=== PATIENT | male | born 1980 | race Caucasian/White ===

== ENCOUNTER 2019-06-10 13:09 | Emergency (ER) | payer OTHER ==
[~2019-06-10] VITALS: Ht 190.5 cm; Wt 204.1 kg
[2019-06-10 14:28] LABS: HEMATOCRIT 43.8 % (42.0-52.0); HEMOGLOBIN 14.6 gm/dL (14.0-18.0); MCH 27.6 pg (26.0-34.0); MCHC 33.3 g/dL (28.0-37.0); MPV 9.7 fl. (7.2-11.1); NUCLEATED RBCS 0 /100WBC; PLATELET COUNT* 232 thou/uL (150-400); RBC 5.28 mil/uL (4.50-6.00); RDW-CV 14.5 % (10.5-14.5); WBC 14.4 thou/uL (4.0-11.0)
[2019-06-10 14:42] LABS: ANION GAP 7 mmol/L (7-16); BUN 12 mg/dL (7-18); CALCIUM 9.1 mg/dL (8.5-10.1); CHLORIDE 103 mmol/L (98-107); CO2 29 mmol/L (21-32); CREATININE 0.8 mg/dL (0.6-1.3); GLUCOSE 97 mg/dL (70-99); POTASSIUM 3.9 mmol/L (3.5-5.1); SODIUM 139 mmol/L (136-145)
[2019-06-10 14:46] LABS: ALBUMIN 3.1 g/dL (3.4-5.0); ALKALINE PHOSPHATASE 85 U/L (46-116); NT-PRO BRAIN NAT PEPTIDE 231 pg/mL (<300); SGOT 15 U/L (15-37); SGPT 28 U/L (30-65); TOTAL BILIRUBIN 0.3 mg/dL (<0.1-1.0); TROPONIN-I LEVEL <0.06 ng/mL (<0.06)
[2019-06-10 14:50] LABS: ABSOLUTE LYMPHOCYTES 2.7 thou/uL (0.8-5.3); ABSOLUTE MONOCYTES 0.6 thou/uL (0.0-1.2); ABSOLUTE NEUTROPHILS 11.1 thou/uL (1.6-8.1); PLATELET ESTIMATE ADEQUATE
--- NOTE | 2019-06-10 17:10 | EKG ---
[place] [address] ELECTROCARDIOGRAM REPORT Name: VIKAANKIT Room: [facility]#: [id number] Admission: 06/10/19 Attend Phys: Discharge: Date of : 82 Report #: [id number] THIS REPORT FOR: //name// [facility] ED Test Date: 2019-06-10 Test Time: 14:20:40 Pat Name: ANKIT SANDY Department: Room: Gender: Registered Nurse Maternal Child: : 1980 Requested By: Parvin Albert Order Number: [id number] MD: Ankit Anna Measurements Intervals [place] Rate: 101 P: 29 ME: 205 QRS: -12 QRSD: 90 T: 57 QT: 317 QTc: 411 Interpretive Statements Sinus tachycardia Borderline prolonged ME interval Consider left atrial enlargement Baseline wander in lead(s) I,II,aVR No previous ECG available for comparison Electronically Signed On 06-10-2019 17:10:06 CDT by Ankit Anna [email or web address] <ELECTRONICALLY SIGNED> By: Ankit Anna MD, [facility] 06/10/19 1710 1420 1420 Ankit Anna MD, FACC /EPI
[2019-06-10] MEDS ORDERED: DOXYCYCLINE 10100 MG PO (18:39)
[2019-06-10] MEDS ORDERED: VENTOLIN HFA 1818 GM INH (18:39)
[2019-06-10 19:16] VITALS: BP 136/98
== END 2019-06-10 19:18 | disposition home or self-care (01) ==
LOC: M.ERS 13:09
PROVIDERS: Nurse Practitioner Family
DX: R06.00 Dyspnea, unspecified (principal); R60.0 Localized edema; Z88.1 Allergy status to other antibiotic agents

== ENCOUNTER 2021-04-07 10:53 | Inpatient (IN) | payer OTHER ==
[~2021-04-07] VITALS: Ht 190.5 cm; Wt 213.3 kg
[~2021-04-07 10:53] MED LIST: DOXYCYCLINE 10100 MG PO; VENTOLIN HFA 1818 GM INH
[2021-04-07 11:05] VITALS: BP 142/85
[2021-04-07 11:42] LABS: HEMATOCRIT 36.1 % (42.0-52.0); MCH 27.8 pg (26.0-34.0); MCHC 33.2 g/dL (28.0-37.0); MCV 83.8 fL (80.0-100.0); MPV 7.6 fl. (7.2-11.1); NUCLEATED RBCS 0 /100WBC; PLATELET COUNT* 333 thou/uL (150-400); RBC 4.31 mil/uL (4.50-6.00); RDW-CV 14.6 % (10.5-14.5); WBC 25.9 thou/uL (4.0-11.0)
[2021-04-07 11:46] LABS: CALCIUM 8.2 mg/dL (8.5-10.1); CREATININE 0.9 mg/dL (0.6-1.3)
[2021-04-07 11:48] LABS: POTASSIUM 2.5 mmol/L (3.5-5.1)
[2021-04-07 11:56] LABS: ALBUMIN 1.7 g/dL (3.4-5.0); TOTAL BILIRUBIN 0.7 mg/dL (<0.1-1.0); TOTAL PROTEIN 7.3 g/dL (6.4-8.2)
[2021-04-07 12:16] LABS: ABSOLUTE EOSINOPHILS 0.8 thou/uL (0.0-0.7); ABSOLUTE LYMPHOCYTES 2.1 thou/uL (0.8-5.3); ABSOLUTE MONOCYTES 0.3 thou/uL (0.0-1.2); ABSOLUTE NEUTROPHILS 22.8 thou/uL (1.6-8.1); ANISOCYTOSIS 1+; PLATELET ESTIMATE ADEQUATE; POIKILOCYTOSIS 1+
[2021-04-07 17:20] VITALS: BP 132/81
--- NOTE | 2021-04-07 17:25 | EKG ---
[place] [address] ELECTROCARDIOGRAM REPORT Name: VIKAANKIT Room: [place] [address] ADM [place] [facility]#: [id number] Admission: 04/07/21 Attend Phys: Angelina Whyte, Discharge: Date of : 82 Date of Service: 04/07/21 1133 Report #: [id number] THIS REPORT FOR: //name// [facility] ED Test Date: 2021-04-07 Test Time: 11:33:38 Pat Name: ANKIT SANDY Department: Room: [facility] Gender: M Welder Tech: MANE : 1980 Requested By: Parvin Albert Order Number: [id number] MD: Ankit Anna Measurements Intervals [place] Rate: 102 P: 30 IL: 153 QRS: -21 QRSD: 104 T: 80 QT: 339 QTc: 442 Interpretive Statements Sinus tachycardia Borderline left axis deviation Minimal ST depression, lateral leads Compared to ECG 06/10/2019 14:20:40 ST (T wave) deviation now present Electronically Signed On 04-07-2021 17:25:15 CDT by Ankit Anna [email or web address] <ELECTRONICALLY SIGNED> By: Ankit Anna MD, [facility] 04/07/21 1725 1133 1133 Ankit Anna MD, [facility] /EPI
[2021-04-07 22:11] VITALS: BP 141/75
[2021-04-07 23:49] VITALS: BP 103/79
[2021-04-08 02:06] LABS: GLYCOHEMOGLOBIN (HGB A1C) 5.3 % (4.8-5.6)
[2021-04-08 04:00] VITALS: BP 128/62
[2021-04-08 04:50] LABS: HEMATOCRIT 34.7 % (42.0-52.0); HEMOGLOBIN 11.4 gm/dL (14.0-18.0); MCV 84.9 fL (80.0-100.0); MPV 7.7 fl. (7.2-11.1); RBC 4.09 mil/uL (4.50-6.00); RDW-CV 14.8 % (10.5-14.5); WBC 23.5 thou/uL (4.0-11.0)
[2021-04-08 05:24] LABS: ALBUMIN 1.6 g/dL (3.4-5.0); CALCIUM 7.3 mg/dL (8.5-10.1); CREATININE 0.8 mg/dL (0.6-1.3); TOTAL BILIRUBIN 0.5 mg/dL (<0.1-1.0); TOTAL PROTEIN 7.1 g/dL (6.4-8.2)
[2021-04-08 05:34] LABS: POTASSIUM 2.6 mmol/L (3.5-5.1)
[2021-04-08 07:51] VITALS: BP 139/77
[2021-04-08 12:00] VITALS: BP 138/81
[2021-04-08 16:00] VITALS: BP 122/63
[2021-04-08 23:41] VITALS: BP 115/64; BP 138/54
[2021-04-09 04:11] VITALS: BP 136/53
[2021-04-09 04:49] LABS: ABSOLUTE BASOPHILS 0.1 thou/uL (0.0-0.2); ABSOLUTE EOSINOPHILS 0.3 thou/uL (0.0-0.7); ABSOLUTE LYMPHOCYTES 1.2 thou/uL (0.8-5.3); ABSOLUTE MONOCYTES 1.8 thou/uL (0.0-1.2); ABSOLUTE NEUTROPHILS 15.8 thou/uL (1.6-8.1); BASOPHILS 0.5 %; EOSINOPHILS 1.5 %; HEMATOCRIT 33.9 % (42.0-52.0); HEMOGLOBIN 11.1 gm/dL (14.0-18.0); LYMPHOCYTES 6.2 %; MCH 27.8 pg (26.0-34.0); MCHC 32.6 g/dL (28.0-37.0); MCV 85.2 fL (80.0-100.0); MONOCYTES 9.3 %; MPV 7.7 fl. (7.2-11.1); NUCLEATED RBCS 0 /100WBC; PLATELET COUNT* 293 thou/uL (150-400); POLYS 82.5 %; RBC 3.98 mil/uL (4.50-6.00); WBC 19.1 thou/uL (4.0-11.0)
[2021-04-09 05:04] LABS: ALBUMIN 1.6 g/dL (3.4-5.0); CALCIUM 8.1 mg/dL (8.5-10.1); CREATININE 0.8 mg/dL (0.6-1.3); POTASSIUM 3.3 mmol/L (3.5-5.1); TOTAL BILIRUBIN 0.1 mg/dL (<0.1-1.0); TOTAL PROTEIN 6.9 g/dL (6.4-8.2)
[2021-04-09 07:44] VITALS: BP 110/56
[2021-04-09 12:00] VITALS: BP 124/67
[2021-04-09 17:00] VITALS: BP 129/69
[2021-04-10 00:09] VITALS: BP 141/87
[2021-04-10 03:38] VITALS: BP 146/74
[2021-04-10 04:54] LABS: ABSOLUTE BASOPHILS 0.1 thou/uL (0.0-0.2); ABSOLUTE EOSINOPHILS 0.3 thou/uL (0.0-0.7); ABSOLUTE LYMPHOCYTES 1.1 thou/uL (0.8-5.3); ABSOLUTE MONOCYTES 1.9 thou/uL (0.0-1.2); ABSOLUTE NEUTROPHILS 18.8 thou/uL (1.6-8.1); BASOPHILS 0.4 %; EOSINOPHILS 1.4 %; HEMATOCRIT 36.2 % (42.0-52.0); HEMOGLOBIN 11.9 gm/dL (14.0-18.0); LYMPHOCYTES 4.9 %; MCHC 32.8 g/dL (28.0-37.0); MCV 85.3 fL (80.0-100.0); MONOCYTES 8.6 %; MPV 7.6 fl. (7.2-11.1); NUCLEATED RBCS 0 /100WBC; PLATELET COUNT* 281 thou/uL (150-400); POLYS 84.7 %; RBC 4.24 mil/uL (4.50-6.00); RDW-CV 14.7 % (10.5-14.5); WBC 22.2 thou/uL (4.0-11.0)
[2021-04-10 05:13] LABS: ALBUMIN 1.7 g/dL (3.4-5.0); CREATININE 0.6 mg/dL (0.6-1.3); POTASSIUM 3.9 mmol/L (3.5-5.1); TOTAL BILIRUBIN 0.3 mg/dL (<0.1-1.0); TOTAL PROTEIN 7.3 g/dL (6.4-8.2)
[2021-04-10 08:00] VITALS: BP 131/72
[2021-04-10 18:08] VITALS: BP 140/68
[2021-04-10 20:00] VITALS: BP 115/58
[2021-04-11] VITALS: BP 103/71
[2021-04-11 01:58] LABS: ABSOLUTE BASOPHILS 0.1 thou/uL (0.0-0.2); ABSOLUTE EOSINOPHILS 0.3 thou/uL (0.0-0.7); ABSOLUTE LYMPHOCYTES 1.7 thou/uL (0.8-5.3); ABSOLUTE MONOCYTES 1.9 thou/uL (0.0-1.2); ABSOLUTE NEUTROPHILS 17.7 thou/uL (1.6-8.1); BASOPHILS 0.6 %; EOSINOPHILS 1.5 %; HEMATOCRIT 34.1 % (42.0-52.0); HEMOGLOBIN 11.3 gm/dL (14.0-18.0); MCV 84.7 fL (80.0-100.0); MONOCYTES 8.6 %; MPV 7.6 fl. (7.2-11.1); NUCLEATED RBCS 0 /100WBC; PLATELET COUNT* 251 thou/uL (150-400); POLYS 81.3 %; RBC 4.02 mil/uL (4.50-6.00); RDW-CV 14.8 % (10.5-14.5); WBC 21.8 thou/uL (4.0-11.0)
[2021-04-11 02:12] LABS: ALBUMIN 1.5 g/dL (3.4-5.0); CREATININE 0.7 mg/dL (0.6-1.3); POTASSIUM 3.7 mmol/L (3.5-5.1); TOTAL BILIRUBIN 0.3 mg/dL (<0.1-1.0); TOTAL PROTEIN 6.9 g/dL (6.4-8.2)
[2021-04-11 03:44] VITALS: BP 117/69
[2021-04-11 08:00] VITALS: BP 105/53
[2021-04-11 13:28] VITALS: BP 123/71
[2021-04-11 18:53] VITALS: BP 118/57
[2021-04-11 20:00] VITALS: BP 138/85
[2021-04-12] VITALS (7 sets, daily range): BP systolic 106–141; BP diastolic 50–88
[2021-04-12 04:37] LABS: HEMATOCRIT 33.9 % (42.0-52.0); HEMOGLOBIN 10.9 gm/dL (14.0-18.0); MCH 27.6 pg (26.0-34.0); MCHC 32.2 g/dL (28.0-37.0); MCV 85.5 fL (80.0-100.0); NUCLEATED RBCS 0 /100WBC; PLATELET COUNT* 252 thou/uL (150-400); RBC 3.97 mil/uL (4.50-6.00); RDW-CV 14.7 % (10.5-14.5); WBC 23.1 thou/uL (4.0-11.0)
[2021-04-12 04:52] LABS: CREATININE 0.8 mg/dL (0.6-1.3); POTASSIUM 3.6 mmol/L (3.5-5.1)
[2021-04-12 06:14] LABS: ABSOLUTE BASOPHILS 0.2 thou/uL (0.0-0.2); ABSOLUTE EOSINOPHILS 1.2 thou/uL (0.0-0.7); ABSOLUTE LYMPHOCYTES 2.3 thou/uL (0.8-5.3); ABSOLUTE MONOCYTES 1.8 thou/uL (0.0-1.2); ABSOLUTE NEUTROPHILS 17.6 thou/uL (1.6-8.1); ATYPICAL LYMPHS 1 %; PLATELET ESTIMATE ADEQUATE
[2021-04-13 04:48] VITALS: BP 127/77
[2021-04-13 08:02] VITALS: BP 121/59
[2021-04-13 16:00] VITALS: BP 117/59
[2021-04-13 21:00] VITALS: BP 117/70
[2021-04-14 04:30] VITALS: BP 115/68
[2021-04-14 05:11] LABS: HEMATOCRIT 31.6 % (42.0-52.0); HEMOGLOBIN 10.2 gm/dL (14.0-18.0); MCH 27.4 pg (26.0-34.0); MCHC 32.2 g/dL (28.0-37.0); MCV 84.9 fL (80.0-100.0); RBC 3.72 mil/uL (4.50-6.00); RDW-CV 14.8 % (10.5-14.5); WBC 20.7 thou/uL (4.0-11.0)
[2021-04-14 05:21] LABS: CALCIUM 8.5 mg/dL (8.5-10.1); CREATININE 0.6 mg/dL (0.6-1.3); POTASSIUM 4.4 mmol/L (3.5-5.1)
[2021-04-14 08:00] VITALS: BP 116/59
--- NOTE | 2021-04-14 12:31 | OP ---
[address] [address] OPERATIVE REPORT Name: SÁNCHEZ SANDY Room: [address] IN M.R.#: [id number] Admission: 04/07/21 Attend Phys: Angelina Whyte MD Discharge: Date of : 82 Report #: [id number] THIS REPORT FOR: cc: EJ - No family physician/PCP FAM - No family physician/PCP Job Santoyo DO ~ DATE OF SERVICE: 04/13/2021 SURGEON: Job Santoyo DO PROJECT COACH: Uziel Spian DO PREOPERATIVE DIAGNOSES: 1. Left lower extremity cellulitis, abscess. 2. Obesity. 3. Lymphedema. POSTOPERATIVE DIAGNOSES: 1. Left lower extremity cellulitis, abscess. 2. Obesity. 3. Lymphedema. PROCEDURE PERFORMED: Left lower extremity debridement of skin and subcutaneous fat down to fascia, excisional debridement. INDICATIONS: The patient is a 40-year-old male who presented with a cat scratch and bite and developed cellulitis with abscess formation of the left lower extremity. He had undergone a bedside incision and drainage. The wound over time began to worsen. We discussed the risks, benefits and alternatives to operative debridement. Risks of bleeding, infection and damage to nearby structures including muscles, tendons, nerves, fascia were described. We also discussed chronic wound, poor wound healing, chronic pain, bleeding, and lymphedema. The patient voiced complete understanding and elected to proceed with surgery. DESCRIPTION OF PROCEDURE: The patient was taken to the operating theater where he was placed in the supine position. Preoperative antibiotics had been given. General anesthesia was induced without complication. The left lower extremity was prepped and draped in a standard sterile fashion. Timeout was performed and all were in agreement. The open wound was approximately 7 x 8 cm. Using a finger, the wound was palpated in all directions. The wound tracked superiorly for several centimeters, anteriorly for several centimeters, and inferiorly for several centimeters. The wound also tracked posteriorly behind the [place] [address] OPERATIVE REPORT Name: SÁNCHEZ SANDY Room: [address] [place] ..#: [id number] Admission: 04/07/21 Attend Phys: Angelina Whyte MD Discharge: Date of : 82 Report #: [id number] side of his leg. The wound was then curetted. All necrotic and devitalized subcutaneous fat was removed. Large area of skin surrounding the wound was also removed circumferentially. The tract posterior to the tibia and fibula was cleaned of devitalized subcutaneous fat using curettes. A counterincision was made on the medial aspect of the left lower leg. Finger was inserted and no further tracking was appreciated. A pulse lavage mold sheet cleaner was then used to irrigate the entire wound. Hemostasis was obtained using electrocautery. One 3-0 Vicryl stitch was sewn in a [id number] fashion to ligate a skin bleeder. The final wound dimensions were 16 x 13 cm and 16 cm deep. The wound was packed with Dakin's 0.25% soaked Kerlix gauze. Two gauzes were placed within the wound. One gauze exited the counter incision. The wound was dressed with abdominal pads, Kerlix and an Barak wrap. This concluded the procedure. All sponge, needle and instrument counts were correct x 2. ESTIMATED BLOOD LOSS: 150 mL. COMPLICATIONS: None. FINDINGS: Devitalized infected subcutaneous fat down to fascia. SPECIMENS: Infected skin and subcutaneous tissue. ANESTHESIA: General endotracheal anesthesia. DRAINS: None. DISPOSITION: The patient was extubated successfully in the operating theater and taken to PACU in stable condition. <ELECTRONICALLY SIGNED> By: Job Santoyo DO 04/14/21 1231 [id number] Santoyo DO /nt
[2021-04-14 16:00] VITALS: BP 112/67
[2021-04-15] VITALS: BP 106/57
[2021-04-15 04:00] VITALS: BP 114/74
[2021-04-15 06:12] LABS: HEMATOCRIT 34.4 % (42.0-52.0); HEMOGLOBIN 11.1 gm/dL (14.0-18.0); MCH 27.5 pg (26.0-34.0); MCHC 32.2 g/dL (28.0-37.0); MCV 85.4 fL (80.0-100.0); MPV 7.7 fl. (7.2-11.1); RBC 4.02 mil/uL (4.50-6.00); RDW-CV 14.3 % (10.5-14.5); WBC 18.9 thou/uL (4.0-11.0)
[2021-04-15 06:24] LABS: CREATININE 0.7 mg/dL (0.6-1.3); POTASSIUM 4.5 mmol/L (3.5-5.1)
[2021-04-15 08:15] VITALS: BP 115/59
[2021-04-15 13:10] VITALS: BP 123/71
[2021-04-15 18:01] VITALS: BP 124/70
[2021-04-16] VITALS: BP 131/72
[2021-04-16 04:00] VITALS: BP 111/63
[2021-04-16 04:47] LABS: HEMATOCRIT 33.2 % (42.0-52.0); HEMOGLOBIN 10.7 gm/dL (14.0-18.0); MCH 27.7 pg (26.0-34.0); MCHC 32.1 g/dL (28.0-37.0); MCV 86.3 fL (80.0-100.0); MPV 7.8 fl. (7.2-11.1); NUCLEATED RBCS 0 /100WBC; PLATELET COUNT* 394 thou/uL (150-400); RBC 3.85 mil/uL (4.50-6.00); RDW-CV 14.7 % (10.5-14.5); WBC 15.2 thou/uL (4.0-11.0)
[2021-04-16 05:01] LABS: CALCIUM 8.4 mg/dL (8.5-10.1); CREATININE 0.8 mg/dL (0.6-1.3); POTASSIUM 4.4 mmol/L (3.5-5.1)
[2021-04-16 06:20] LABS: ABSOLUTE EOSINOPHILS 0.5 thou/uL (0.0-0.7); ABSOLUTE LYMPHOCYTES 3.3 thou/uL (0.8-5.3); ABSOLUTE MONOCYTES 1.1 thou/uL (0.0-1.2); ABSOLUTE NEUTROPHILS 10.3 thou/uL (1.6-8.1); ANISOCYTOSIS 1+; MYELOCYTES 1 %; PLATELET ESTIMATE ADEQUATE; POIKILOCYTOSIS 1+
[2021-04-16 08:00] VITALS: BP 128/63
[2021-04-16 16:20] VITALS: BP 129/77
[2021-04-16 20:00] VITALS: BP 139/70
[2021-04-17 07:40] VITALS: BP 130/79
[2021-04-17 15:30] LABS: ABSOLUTE BASOPHILS 0.2 thou/uL (0.0-0.2); ABSOLUTE EOSINOPHILS 0.3 thou/uL (0.0-0.7); ABSOLUTE LYMPHOCYTES 2.3 thou/uL (0.8-5.3); ABSOLUTE MONOCYTES 0.7 thou/uL (0.0-1.2); ABSOLUTE NEUTROPHILS 13.4 thou/uL (1.6-8.1); BASOPHILS 1.4 %; EOSINOPHILS 1.7 %; HEMATOCRIT 35.5 % (42.0-52.0); HEMOGLOBIN 11.6 gm/dL (14.0-18.0); LYMPHOCYTES 13.5 %; MCH 27.6 pg (26.0-34.0); MCHC 32.7 g/dL (28.0-37.0); MCV 84.5 fL (80.0-100.0); MONOCYTES 4.3 %; MPV 7.5 fl. (7.2-11.1); NUCLEATED RBCS 0 /100WBC; POLYS 79.1 %; RDW-CV 15.1 % (10.5-14.5); WBC 16.9 thou/uL (4.0-11.0)
[2021-04-17 15:31] LABS: PLATELET COUNT* 481 thou/uL (150-400)
[2021-04-17 15:46] LABS: ALBUMIN 2.2 g/dL (3.4-5.0); CALCIUM 8.9 mg/dL (8.5-10.1); CREATININE 0.7 mg/dL (0.6-1.3); POTASSIUM 4.1 mmol/L (3.5-5.1); TOTAL BILIRUBIN 0.2 mg/dL (<0.1-1.0); TOTAL PROTEIN 7.7 g/dL (6.4-8.2)
[2021-04-17 16:26] VITALS: BP 137/75
[2021-04-17 19:40] VITALS: BP 130/79
[2021-04-18 09:15] VITALS: BP 104/61
[2021-04-18 16:22] VITALS: BP 118/65
[2021-04-18 20:00] VITALS: BP 117/62
[2021-04-19 08:33] VITALS: BP 121/78
[2021-04-19] MEDS ORDERED: AUGMENTIN 875-1 EACH PO (09:00)
[2021-04-19 16:01] VITALS: BP 145/86
[2021-04-19 20:00] VITALS: BP 119/63
[2021-04-20 07:10] VITALS: BP 147/66
[2021-04-20 12:25] VITALS: BP 147/66
[2021-04-20 12:28] VITALS: BP 147/66
[2021-04-20 16:32] VITALS: BP 126/67
[2021-04-20 23:06] VITALS: BP 114/55
[2021-04-21 08:00] VITALS: BP 134/68
[2021-04-21 15:50] VITALS: BP 124/63
== END 2021-04-21 17:43 | disposition home health service (06) | DRG 854 ==
LOC: M.ERS 10:53 → M.TBA-ER 12:22 → M.2W 17:30 → M.ORTHSURG 04-16 19:28
PROVIDERS: Internal Medicine; Nurse Practitioner Family; Pediatrics; Surgery; ADMIT Internal Medicine; ATTEND Internal Medicine
PROC: 0Y9J0ZZ Drainage of Left Lower Leg, Open Approach (ICD-10-PCS; principal; 2021-04-08)
PROC: B548ZZA Ultrasonography of Superior Vena Cava, Guidance (ICD-10-PCS; 2021-04-09)
PROC: 02HV33Z Insertion of Infusion Device into Superior Vena Cava, Percutaneous Approach (ICD-10-PCS; 2021-04-09)
PROC: 0JBP0ZZ Excision of Left Lower Leg Subcutaneous Tissue and Fascia, Open Approach (ICD-10-PCS; 2021-04-13)
PROC: 0JBP0ZZ Excision of Left Lower Leg Subcutaneous Tissue and Fascia, Open Approach (ICD-10-PCS; 2021-04-14)
DX: A41.9 Sepsis, unspecified organism (principal); L03.116 Cellulitis of left lower limb; Z68.43 Body mass index [BMI] 50.0-59.9, adult; L02.416 Cutaneous abscess of left lower limb; E87.6 Hypokalemia; F17.210 Nicotine dependence, cigarettes, uncomplicated; F12.90 Cannabis use, unspecified, uncomplicated; E66.01 Morbid (severe) obesity due to excess calories; I89.0 Lymphedema, not elsewhere classified; S81.852A Open bite, left lower leg, initial encounter; Z20.822 Contact with and (suspected) exposure to COVID-19; W55.01XA Bitten by cat, initial encounter; Y93.89 Activity, other specified; Z79.899 Other long term (current) drug therapy; Z88.1 Allergy status to other antibiotic agents; Y92.89 Other specified places as the place of occurrence of the external cause; Y99.8 Other external cause status

== ENCOUNTER 2021-04-23 08:07 | Emergency (ER) | payer OTHER ==
[~2021-04-23] VITALS: Ht 195.6 cm; Wt 215.5 kg
[~2021-04-23 08:07] MED LIST changes: +AUGMENTIN 875-1 EACH PO
[2021-04-23 09:37] VITALS: BP 147/100
== END 2021-04-23 09:38 | disposition home or self-care (01) ==
LOC: M.ERS 08:07
DX: Z48.01 Encounter for change or removal of surgical wound dressing (principal); E66.01 Morbid (severe) obesity due to excess calories; Z68.43 Body mass index [BMI] 50.0-59.9, adult; Z88.1 Allergy status to other antibiotic agents